=== PATIENT | female | born 1930 | race Caucasian/White ===

== ENCOUNTER 2018-04-20 09:48 | Inpatient (IN) | payer MEDICARE ==
[~2018-04-20] VITALS: Ht 167.6 cm; Wt 77.1 kg
[~2018-04-20 09:48] MED LIST: ASCO500 PO; ASPI325 PO; ASPI81CH PO; ATOR40TA PO; B Complex #11 EACH PO; BENAML20/5 PO; BUME1 PO; CARV3.125 PO; D3-20002000 UNIT PO; ELIQUIS2.5 MG PO; EZET10-20 PO; FURO40 PO; GLIM4 PO; INSDET100 SC; LEVEMIR FL100 UNIT/1 SC; LISI20 PO; METO50 PO; POTCHL20ER PO; SITA25T2 PO; SPIR25 PO; VITAMIN B1 PO; WARF5 PO; [UNRECOGNIZED DRUG - CODE]
[2018-04-20 10:21] LABS: Source, Urine Catheter
[2018-04-20 10:25] LABS: BASOPHILS ABSOLUTE AUTO 0.01 K/mm3 (0.00-0.23); BASOPHILS PERCENT AUTO 0 % (0-2); EOSINOPHILS ABSOLUTE AUTO 0.03 K/mm3 (0.00-0.68); EOSINOPHILS PERCENT AUTO 0 % (0-6); Hematocrit 39.8 % (33.0-51.0); Hemoglobin 12.3 g/dL (11.5-16.0); IMMATURE GRAN ABSOLUTE AUTO 0.04 K/mm3 (0.00-0.10); IMMATURE GRAN PERCENT AUTO 0 % (0-1); LYMPHOCYTES ABSOLUTE AUTO 0.77 K/mm3 (0.84-5.20); LYMPHOCYTES PERCENT AUTO 6 % (21-46); MONOCYTES ABSOLUTE AUTO 0.66 K/mm3 (0.16-1.47); MONOCYTES PERCENT AUTO 6 % (4-13); Mean Corpuscular HGB 29.8 pg (26.0-34.0); Mean Corpuscular HGB Conc 30.9 g/dL (31.5-36.5); Mean Corpuscular Volume 96 fL (80-100); NEUTROPHILS ABSOLUTE AUTO 10.46 K/mm3 (1.96-9.15); NEUTROPHILS PERCENT AUTO 87 % (41-73); Platelet Count 270 K/mm3 (150-400); RDW Coefficient Variation 14.1 % (11.7-14.2); RDW Standard Deviation 49.9 fL (35.1-46.3); Red Blood Cell Count 4.13 M/mm3 (3.80-5.20); White Blood Cell Count 11.97 K/mm3 (4.00-11.30)
[2018-04-20 10:26] LABS: Appearance, Urine Hazy (Clear); Bilirubin, Urine Neg (Neg); Blood, Urine Neg (Neg); Color, Urine Yellow (P-Yellow); Glucose Qualitative, Urine Neg (Neg); Ketones, Urine Neg (Neg); Leukocyte Esterase, Urine 1+ (Neg); Nitrite, Urine Pos (Neg); Protein, Urine 1+ (Neg); Urobilinogen, Urine NORM (Normal)
[2018-04-20 10:41] LABS: Granular Casts 0-2 /lpf ({null, 0}); Mucus Light ({null, 0-Heavy})
[2018-04-20 10:43] LABS: Red Blood Cells, Urine Not Seen /hpf (0-2)
[2018-04-20 10:44] LABS: Squamous Epithelial Cells Few /hpf (Few)
[2018-04-20 10:48] LABS: Amorphous Light ({null, 0-Heavy})
[2018-04-20 10:49] LABS: Bacteria Many /hpf
[2018-04-20 10:51] LABS: Hyaline Casts 0-2 /lpf (0-2)
[2018-04-20 10:53] LABS: Albumin, Blood 3.1 g/dL (3.4-5.0); Albumin/Globulin Ratio 0.7 (0.8-1.8); Bun/Creatinine Ratio 30.2 (12.0-20.0); Calcium, Blood 9.2 mg/dL (8.5-10.1); Creatinine, Blood 1.62 mg/dL (0.40-1.00); Globulin, Blood 4.2 g/dL (2.2-4.0); Potassium, Blood 4.2 mmol/L (3.5-5.5); Total Protein, Blood 7.3 g/dL (6.4-8.2)
[2018-04-20] MEDS ORDERED: Carvedilol12.5 MG PO (12:20)
[2018-04-20] MEDS ORDERED: GLIM4 PO ×2 (12:21→12:22)
[2018-04-20] MEDS ORDERED: FURO40 PO (12:21)
[2018-04-20] MEDS ORDERED: ENTRESTO 24 MG1 EACH PO (12:21)
[2018-04-20] MEDS ORDERED: LEVEMIR FL100 UNIT/1 SC (12:22)
[2018-04-20] MEDS ORDERED: CHOL10002 PO (12:23)
[2018-04-20 14:38] LABS: Magnesium, Blood 1.8 mg/dL (1.6-2.4)
[2018-04-20 14:40] LABS: Phosphorus, Blood 3.2 mg/dL (2.5-4.9); Thyroid Stimulating Hormone 2.06 uIU/mL (0.360-4.800)
--- NOTE | 2018-04-20 15:53 | NUR ---
Initial Visit: Palliative Care Consult for goals of care. Pt is A&Ox4 and reports tolerable 2/10 pain in her entire left leg and right knee. Later into visit Pt's pain appears to increase with a FLACC score of 4/10. Family at bedside including Riki, daughter Sarah, son Adal, and Sarah's Juan. Engaged in therapeutic conversation regarding goals of care. Pt lives at home with her in [place]. She is of [employer] and reports that at baseline she is independent. Discussion was made about EMS report when looking for food very little was found and Pt reports it happened to let the food supply get lower than intended. She report typically there is adequate food in the home. Pt and reports they feel having adequate support from family and friends for any care needs. Discussed AD/POLST with Pt and she reports not having one completed. Educated Pt and family on each section of POLST/AD including risk factors. Pt reports that she will have her daughter assist her in completing POLST or AD. Pt and family report no other concerns at this time. Spoke with Pt's ED nurse Saray and reported Pt's pain. Saray reports that she will address Pt's pain. No other concerns reported at this time. Plan: Obtain copy of POLST once completed. Will remain available.
--- NOTE | 2018-04-20 16:09 | NUR ---
Late Entry from Initial Visit. Spoke with Pt and family regarding options of assistance with caregivers. Pt and family denied need at this time.
--- NOTE | 2018-04-20 16:16 | NUR ---
ADMIT NOTE- REVIEWED H&P AND IMAGE REPORTS RECIEVED TELEPHONE REPORT FROM ARIEL BADILLO, PER REPORT PT EXTREMELY WEAK, IS CONTINENT OF BOWEL AND BLADDER, CONFUSED; PER LABS POSITIVE FOR UTI. ARIEL BADILLO STATED PT IS HAVING LARGE AMOUNTS OF PAIN, PT TO BE TRANSPORTED TO MEDICAL FLOOR WILL ASSESS AND REQUEST ORDER FOR PAIN MEDICATION NEEDED.
--- NOTE | 2018-04-20 19:37 | NUR ---
SHIFT SUMMARY- PT ADMITTED THROUGH THE ED FOR CHF. PT BNP ELEVATED AND TROPONIN IS BUMPED, PT ON TELE PACED AT 77 PER POLYMERIZATION SUPERVISOR. PT IS EXTREMELY WEAK TRANSFERS TO [facility] REQUIRE 2 PEOPLE, PT REQUESTS TO GO TO THE BATHROOM EVERY 30 MINUTES HOWEVER SHE HAS ONLY BEEN ABLE TO URINATE ONCE. SHE SEEMS TO BE BECOMING MORE EXHAUSETED WITH EACH TRANSFER. LEG PAIN HAS THE PT CHANGING POSITION FREQUENTLY, BED ALARM ON FOR SAFETY, FAMILY IS AT THE BEDSIDE AT THIS TIME. PT DID NOT EAT MUCH DINNER (A ROLL). BEDSIDE REPORT COMPLETED WITH NIGHT RN CRISTAL. TYLENOL WAS HELPFUL BUT PT STILL APPEARS TO HAVE ALOT OF PAIN, PASSED ON THAT NORCO IS STILL AVAILABLE FOR THE PT TO HAVE. PT HAS A POSITIONAL IV IN THE RIGHT AC. CALL LIGHT IS IN REACH AND PT IS AWARE TO PUSH THE RED BUTTON IF SHE NEEDS HELP HOWEVER SHE IS FORGETFUL. PT HAD A FALL AT HOME BUT WHEN ASKED ABOUT IT SHE DENIES SHE FELL. PT DAUGHTER AT BEDSIDE STATED THAT THE PT GETS "CONFUSED SOMETIMES" STATED THIS IS "KIND OF NORMAL FOR HER."
--- NOTE | 2018-04-21 00:44 | NUR ---
PATIENT HOME MEDICATION VERIFIED BY PHARMACY AND GIVEN PER EMAR. PHOTO CONSENT SIGNED AND BLE SHINS PHOTOGRAPH FOR CHART. WEEPING EDEMA.
--- NOTE | 2018-04-21 03:39 | NUR ---
SHIFT SUMMARY PATIENT HAD NO ACUTE CHANGES OBSERVED THIS SHIFT. AXO 3 W/CONFUSION AT TIMES, [place]. ONE TO TWO PERSON ASSIST TO BSC. PATIENT ON LASIX. PATIENT REPORTS BLE PAIN FROM WEEPING EDEMA. ALTERNATING TYLENOL AND NORCO PER EMAR. PATIENT REPORTS REDUCED PAIN. PIV REMAINS INTACT. PHOTO CONSENT SIGNED AND PICTURES TAKES OF BLE AND IN CHART. RESPIRATORY PANEL SENT TO LAB AND POSITIVE FOR INFLUENZA. DROPLET PRECAUTIONS. FAMILY AT BEDSIDE T/O SHIFT. HOME MEDICATION VERIFIED BY PHARMACY AND GIVEN. CALL LIGHT IN REACH. BED IN LOWEST POSITION. CALL LIGHT IN REACH. WILL CONTINUE TO MONITOR UNTIL DAY SHIFT NURSE ASSUMES CARE.
[2018-04-21 04:46] LABS: BASOPHILS ABSOLUTE AUTO 0.04 K/mm3 (0.00-0.23); BASOPHILS PERCENT AUTO 0 % (0-2); EOSINOPHILS ABSOLUTE AUTO 0.15 K/mm3 (0.00-0.68); EOSINOPHILS PERCENT AUTO 2 % (0-6); Hematocrit 35.9 % (33.0-51.0); IMMATURE GRAN ABSOLUTE AUTO 0.02 K/mm3 (0.00-0.10); IMMATURE GRAN PERCENT AUTO 0 % (0-1); LYMPHOCYTES ABSOLUTE AUTO 1.16 K/mm3 (0.84-5.20); LYMPHOCYTES PERCENT AUTO 12 % (21-46); MONOCYTES ABSOLUTE AUTO 0.73 K/mm3 (0.16-1.47); MONOCYTES PERCENT AUTO 8 % (4-13); Mean Corpuscular HGB 29.7 pg (26.0-34.0); Mean Corpuscular HGB Conc 30.6 g/dL (31.5-36.5); Mean Corpuscular Volume 97 fL (80-100); Mean Platelet Volume 11.2 fL (9.1-12.4); NEUTROPHILS PERCENT AUTO 78 % (41-73); Platelet Count 257 K/mm3 (150-400); RDW Coefficient Variation 14.2 % (11.7-14.2); RDW Standard Deviation 50.6 fL (35.1-46.3)
[2018-04-21 05:07] LABS: Bun/Creatinine Ratio 30.4 (12.0-20.0); Calcium, Blood 8.6 mg/dL (8.5-10.1); Creatinine, Blood 1.58 mg/dL (0.40-1.00); Magnesium, Blood 1.9 mg/dL (1.6-2.4); Potassium, Blood 4.3 mmol/L (3.5-5.5)
--- NOTE | 2018-04-21 07:26 | NUR ---
ASSUMED CARE OF PT- BEDSIDE REPORT COMPLETE WITH NIGHT RN CRISTAL. PT HAS CALLED FOR BATHROOM ASSIST T/O THE NIGHT PER LEADERSHIP PROGRAM ASSOCIATE REPORT UP TO 4 TIMES AN HOUR, PT IS WEAK AND EXHAUSTED AND SHE IS OFTEN UNABLE TO URINATE AT ALL ONCE SHE GETS TO THE BSC. SHE HAS FREQUENCY AND PAIN WITH URINATING. CALLED DR OSUNA AND RECIEVED AN ORDER FOR ADEN CATHETER AND PYRIDIUM. WILL CTM.
[2018-04-21 08:15] LABS: Source, Urine Catheter
[2018-04-21 08:22] LABS: Appearance, Urine Turbid (Clear); Bilirubin, Urine Neg (Neg); Blood, Urine 3+ (Neg); Color, Urine Yellow (P-Yellow); Glucose Qualitative, Urine Neg (Neg); Ketones, Urine Neg (Neg); Leukocyte Esterase, Urine 3+ (Neg); Nitrite, Urine Neg (Neg); Protein, Urine 2+ (Neg); Specific Gravity, Urine 1.015 (1.003-1.022); Urobilinogen, Urine NORM (Normal)
[2018-04-21 08:41] LABS: White Blood Cells, Urine TNTC /hpf (0-5)
[2018-04-21 08:42] LABS: Bacteria Mod /hpf; Red Blood Cells, Urine 0-2 /hpf (0-2); Squamous Epithelial Cells Few /hpf (Few)
--- NOTE | 2018-04-21 18:38 | NUR ---
SHIFT SUMMARY- ADEN WAS PLACED AT THE BEGINING OF THE SHIFT, D/T PT PAIN, INFECTION AND RETENTION, PYRIDIUM WAS STARTED WELL. PT MEDICATED ONCE WITH NORCO FOR PAIN AND HAS HAD NO FURTHER C/O PAIN. PT WAS ABLE TO REST A LITTLE TODAY AND WAS ABLE TO AMBULATE WITH PHYSICAL THERAPY. PT IS ORIENTED TO SELF AND FAMILY. PT FORGETS WHAT STAFF HAVE TOLD HER BEFORE, SHE WILL OFTEN ASK THE SAME QUESTIONS. FAMILY IS AT THE BEDSIDE AND ARE ROTATING SO A FAMILY MEMBER IS ALWAYS PRESENT. PT HAS HER CALL LIGHT IN REACH AND FAMILY ASSISTS HER IN CALLING APPROPRIATLY. NO C/O PAIN AT THIS TIME.
--- NOTE | 2018-04-21 20:31 | NUR ---
FAMILY MAKING AN ATTEMPT TO TAKE PATIENT OUT OF BED TO WALK. FAMILY REORIENTED TO LEAVE PATIENT IN BED. PATIENT REPORTS SHE DOES NOT WANT TO MAKE AN ATTEMPT TO WALK AT THIS TIME.
--- NOTE | 2018-04-22 04:24 | NUR ---
SHIFT SUMMARY PATIENT REPORTED NO LEG PAIN T/O THE SHIFT. FAMILY PRESENT AT SHIFT CHANGE. 1-2 PERSON ASSIST TO BSC, SAC AND [place]. PIV REMAINS INTACT. CBG 153. FLUID RESTRICTIONS 1,500 mL. ADEN PATENT AND DRAINING. VSS/AFEBRIEL. DENIES PAIN, SOB, AND N/V. TAKES MEDS WHOLE WITH WATER. PATIENT MORE ALERT THIS SHIFT AND ENGAGING WITH FAMILY MEMBERS. COOPERATIVE WITH CARE. CALL LIGHT IN REACH. BED IN LOWEST POSITION. WILL CONTINUE TO MONITOR UNTIL DAY SHIFT NURSE ASSUMES CARE.
[2018-04-22 04:58] LABS: BASOPHILS ABSOLUTE AUTO 0.04 K/mm3 (0.00-0.23); BASOPHILS PERCENT AUTO 1 % (0-2); EOSINOPHILS ABSOLUTE AUTO 0.25 K/mm3 (0.00-0.68); EOSINOPHILS PERCENT AUTO 3 % (0-6); Hematocrit 36.7 % (33.0-51.0); IMMATURE GRAN ABSOLUTE AUTO 0.02 K/mm3 (0.00-0.10); IMMATURE GRAN PERCENT AUTO 0 % (0-1); LYMPHOCYTES ABSOLUTE AUTO 1.14 K/mm3 (0.84-5.20); LYMPHOCYTES PERCENT AUTO 15 % (21-46); MONOCYTES ABSOLUTE AUTO 0.68 K/mm3 (0.16-1.47); MONOCYTES PERCENT AUTO 9 % (4-13); Mean Corpuscular HGB 29.4 pg (26.0-34.0); Mean Corpuscular Volume 98 fL (80-100); Mean Platelet Volume 11.2 fL (9.1-12.4); NEUTROPHILS ABSOLUTE AUTO 5.75 K/mm3 (1.96-9.15); NEUTROPHILS PERCENT AUTO 73 % (41-73); Platelet Count 233 K/mm3 (150-400); RDW Standard Deviation 50.9 fL (35.1-46.3); Red Blood Cell Count 3.74 M/mm3 (3.80-5.20); White Blood Cell Count 7.88 K/mm3 (4.00-11.30)
[2018-04-22 05:19] LABS: Bun/Creatinine Ratio 33.1 (12.0-20.0); Calcium, Blood 8.8 mg/dL (8.5-10.1); Creatinine, Blood 1.78 mg/dL (0.40-1.00); Potassium, Blood 4.2 mmol/L (3.5-5.5)
[2018-04-22] MEDS ORDERED: ACET325 PO (17:27)
[2018-04-22] MEDS ORDERED: ASCO500 PO (17:28)
[2018-04-22] MEDS ORDERED: ASPI81CH PO (17:28)
[2018-04-22] MEDS ORDERED: Ferrous Sulfat325 M2 PO (17:29)
[2018-04-22] MEDS ORDERED: CEFP200 PO (17:29)
[2018-04-22] MEDS ORDERED: Pyridium100 MG PO (17:30)
[2018-04-22] MEDS ORDERED: SACC250C PO (17:30)
--- NOTE | 2018-04-22 18:04 | NUR ---
DISCHAGRE NOTE- PT DISCHARGED HOME. FAMILY PRESENT FOR DISCHARGE INSTRUCTIONS. PT RECIEVED VERBAL AND WRITTEN DISCHARGE INSTRUCTIONS AND ACKNOWLEDGED UNDERSTANDING OF THEM, FAMILY ASKED APPROPRIATE QUESTIONS, NO FURTHER QUESTIONS AT THE TIME OF DISCHARGE; DISCHARGE PACKET INCLUDES CONTACT NUMBER FOR MEDICAL FLOOR IF QUESTIONS SHOULD ARRISE ABOUT DISCHARGE INSTRUCTIONS. IV, ADEN AND TELE DC'D PRIOR TO PT SHOWER EARLIER IN THE SHIFT. PT WAS TAKEN BY SAW EDGE FUSER CIRCULAR TO THE PT ENTRANCE VIA W/C.
== END 2018-04-22 17:56 | disposition home or self-care (01) | DRG 292 ==
LOC: ER 09:48 → ERHOLD 13:11 → MEDS 13:11
PROVIDERS: Emergency Medicine; ADMIT Family Medicine
DX: I13.0 Hypertensive heart and chronic kidney disease with heart failure and stage 1 through stage 4 chronic kidney disease, or unspecified chronic kidney disease (principal); N39.0 Urinary tract infection, site not specified; G93.40 Encephalopathy, unspecified; N17.9 Acute kidney failure, unspecified; I42.9 Cardiomyopathy, unspecified; R79.89 Other specified abnormal findings of blood chemistry; Z95.5 Presence of coronary angioplasty implant and graft; I25.10 Atherosclerotic heart disease of native coronary artery without angina pectoris; I25.2 Old myocardial infarction; Z79.4 Long term (current) use of insulin; I48.2 Chronic atrial fibrillation; E78.5 Hyperlipidemia, unspecified; E11.22 Type 2 diabetes mellitus with diabetic chronic kidney disease; N18.3 Chronic kidney disease, stage 3 (moderate); J44.9 Chronic obstructive pulmonary disease, unspecified; E11.649 Type 2 diabetes mellitus with hypoglycemia without coma; I48.0 Paroxysmal atrial fibrillation; I50.9 Heart failure, unspecified
CPT/HCPCS: 36415; 71045; 80048; 80053; 81001; 82947; 83036; 83735; 83880; 84100; 84145; 84443; 84484; 85025; 87077; 87086; 87186; 93005; 93010; 93306; 96361; 96365; 97116; 97162; 97530; 99285-25; A9270-GY; J0696; J1940; J7030; P9612